=== PATIENT | female | born 1990 | race Caucasian/White ===

== ENCOUNTER 2021-08-16 20:08 | Emergency (ER) | payer OTHER, SELFPAY ==
[2021-08-16 20:36] VITALS: BP 120/79; PULSE 102; RESP 14; TEMP 36.8; O2SAT 100; BMI 33.1
--- NOTE | 2021-08-16 22:10 | ED_ITS ---
HPI - Skin/Abscess/Foreign Bdy General: Chief complaint: Skin/Abscess/Foreign Body Stated complaint: Bleeding L cheek Time Seen by Provider: 08/16/21 21:59 Source: patient Mode of arrival: ambulatory Limitations: no limitations History of Present Illness: 31-year-old female who states she has cirrhosis she states she had a small sore to her left cheek that bled off and on over the last week but states over the last days its bled for roughly 20 hours she has not been able to get to stop. It is active bleeding currently looks like a small pinpoint area that is bleeding no large open sore. Denies any pain denies any worsening improving factors Associated symptoms: Deny chills, fever(s), nausea or vomiting Review of Systems Const: Denies: fever(s), chills, body aches or change in appetite Eyes: Denies: blurry vision or eye discomfort ENMT: Denies: throat pain or dental pain Card: Denies: chest pain Resp: Denies: dyspnea GI: Denies: abdominal pain, nausea, vomiting or diarrhea : Denies: dysuria Musc: Denies: neck pain or back pain Skin/Breast: Denies: rash Neuro: Denies: headache(s) Psych: Denies: depression Shashank/Lymph: Denies: easy bruising All/Imm: Denies: urticaria PFSH ED PFSH: Medical History Cirrhosis Family History (Updated 08/16/21 @ 22:11 by Leidy Deleon MD) Other Bleeding disorder Physical Exam Const: COMMON NORMALS: no acute distress, patient oriented x3 and healthy appearing HENMT: COMMON NORMALS: normocephalic and atraumatic HEAD & SCALP: normocephalic and atraumatic OTHER: Small pinpoint area of hemorrhage to the left cheek that is actively bleeding Eye: COMMON NORMALS: Equal, round and reactive pupils present and EOMs intact bilaterally PUPIL: Yes Equal, round and reactive pupils present Neck/C-Spine: COMMON NORMALS: full ROM and supple Chest: COMMONS NORMALS: normal inspection of the chest and normal palpation of entire chest wall Resp: COMMON NORMALS: normal respiratory effort, No retractions, No use of accessory muscles and clear to auscultation bilaterally AUSCULTATION: clear to auscultation bilaterally Cardio: COMMON NORMALS: regular rate, regular rhythm and No murmurs present (Cardio) RATE: regular rate RHYTHM: regular rhythm GI: COMMON NORMALS: Normal to inspection, nondistended, normoactive bowel sounds present, Soft to palpation, non-tender and no masses PALPATION: Yes Soft to palpation Extremity: COMMON NORMALS: normal to inspection and full ROM Neuro: COMMON NORMALS: patient oriented x3, moves all extremities and no focal motor deficits Psych: COMMON NORMALS: mental status grossly normal, Normal thought process present and cooperative THOUGHT PROCESS: Normal thought process present Skin: COMMON NORMALS: no rashes or lesions noted and no wounds GENERAL SKIN EXAM: no rashes or lesions noted Procedures Laceration Laceration 1: Site: face Size (cm): 0.5 Local Anesthetic: lidocaine 1% and with epi Amount of anesthesia used (mL): 5 Skin layer closed with: vicryl Size (cm): 4-0 Number of sutures: 1 Course Vital Signs: Vital signs: Vital Signs Temperature 98.2 F 08/16/21 20:36 Pulse Rate 102 H 08/16/21 20:36 Respiratory Rate 14 08/16/21 20:36 Blood Pressure 120/79 08/16/21 20:36 Pulse Oximetry 100 08/16/21 20:36 MDM - Skin/Abscess/Foreign Bdy Medicial Decision Making Patient presents here with active bleeding from left cheek was able to get it stopped with a [id number] stitch she does have cirrhosis likely caused her bleeding Discharge Plan Discharge Patient Disposition: Home Clinical Impression: Bleeding Condition: Stable Discharge Orders: Discharge ED (Routine); Ordered 08/16/21 Ordered By: Leidy Deleon Discharge Diet: Advance as tolerated Discharge Activity: Resume usual activity Patient Instructions: Bleeding Disorders (ED) Coding Level of Care Code 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
--- NOTE | 2021-08-16 22:20 | PC.NURSE ---
wound was closed with 2 stitches. bleeding controlled. pressure dressing placed.
[2021-08-16 22:54] VITALS: BP 124/80; PULSE 97; RESP 16; O2SAT 99
== END 2021-08-16 22:55 | disposition home or self-care (01) ==
PROVIDERS: Emergency Provider Emergency Medicine
DX: S01.402A Unspecified open wound of left cheek and temporomandibular area, initial encounter (principal); X58.XXXA Exposure to other specified factors, initial encounter
CPT/HCPCS: 12011; 99282

== ENCOUNTER 2021-08-18 10:55 | Emergency (ER) | payer OTHER, SELFPAY ==
[2021-08-18 11:36] VITALS: BP 144/88; PULSE 101; RESP 18; O2SAT 100
--- NOTE | 2021-08-18 11:42 | CT_ITS ---
WS: [id number] CT HEAD NONCONTRAST HISTORY: DUONG, reports bleeding from L ear/nose TECHNIQUE: Contiguous axial imaging performed through the brain in 2.5 mm imaging. Bone and soft tiss ue windows. Sagittal and coronal reformats reviewed. All CT scans at [facility] use at least one of these dose optimization techniques: automated exposure control; mA and/or kV adjustment per pa tient size (includes targeted exams where dose is matched to clinical indication); or iterative recon struction. DLP: 866.8 mGy.cm COMPARISON: None available. No acute intracranial hemorrhage, midline shift or mass effect. No atrophy or prior infarcts or herniation. Ventricles: Normal size with no hydrocephalus. Paranasal sinuses: Mild diffuse mucoperiosteal thickening throughout the sinuses, most significantly involving the ethmoid air cells. Mastoid air cells: Well pneumatized. Calvarium and scalp: Skull is intact with no soft tissue edema or swelling. Soft tissue calcification or possibly a piercing over the central frontal bone. There is very mild thickening along the LEFT tympanic membrane which is asymmetric to the RIGHT. CT/CT head wo con* [id number] IMPRESSION: Negative head CT. Very minimal thickening involving the LEFT tympanic membrane which is asymmetri c to the RIGHT.
--- NOTE | 2021-08-18 12:00 | W.ED.GENADLT ---
Documented by User: JONATHAN Rosales 08/18/21 15:21 HPI - General Adult General: Chief complaint: Ear Stated complaint: Bleeding from the ear Time Seen by Provider: 08/18/21 11:18 Source: patient Mode of arrival: ambulatory Limitations: no limitations History of Present Illness: Patient is a 31-year-old female who presents to ED today with a complaint of a left earache and headache. She was seen here yesterday secondary to a lesion to her left cheek that was bleeding and she could not control the bleeding at home. Provider at the time placed a [id number] stitch which controlled the bleeding well. She states she has not had any further bleeding from the lesion. Patient states since then however she has developed a headache and left-sided ear pain and feels she does have some blood from her ear canal. She is also complaining of blood when she blows her nose. Patient is visibly very anxious and tearful. She does tell me she has a history of liver cirrhosis. She states she used to be a severe alcoholic but has not drank since May of this year. Patient states she did have labs performed approximately a month ago at [facility] for evaluation of this. She states she has an appointment with a liver specialist in approximately 2 weeks here in [facility]. Patient denies any bloody emesis. She is not having any black or tarry stools. She has not noticed any easy bruising or petechial/purpuric rashes. Onset (ago): hour(s) Location: head Relieving factors: none Exacerbating factors: none Associated symptoms: Reports headache(s); Deny chest pain, confusion, dyspnea, malaise, rash or vomiting Review of Systems Const: Denies: fever(s), chills, body aches, fatigue or malaise Eyes: Denies: change in vision or blurry vision ENMT: Reports: ear or mastoid pain, ear discharge and change in hearing; Denies: throat pain, odynophagia, bleeding gums, dental pain, tinnitus, disequilibrium, nasal discharge, nasal congestion, post nasal drip or sinus pain Card: Denies: chest pain Resp: Denies: dyspnea GI: Denies: abdominal pain, vomiting, diarrhea, hematochezia or melena : Denies: flank pain, dysuria or hematuria Musc: Denies: neck pain, back pain, extremity pain or joint pain Skin/Breast: Denies: rash Neuro: Reports: headache(s); Denies: numbness in extremities, weakness in extremities, sensory changes, lack of coordination, difficulty walking, frequent falls, dizziness or confusion Psych: Reports: anxiety PFSH ED PFSH: Medical History Cirrhosis Family History Other Bleeding disorder Social History (Updated 08/22/21 @ 08:41 by Joycelyn Walls) Smoking and tobacco status: current every day smoker Physical Exam Const: COMMON NORMALS: no acute distress, patient oriented x3, no limitations and alert GENERAL APPEARANCE: cooperative and anxious NUTRITIONAL APPEARANCE: overweight HENMT: COMMON NORMALS: normocephalic, atraumatic and external ears normal (lobes are deformed from previous gages) HEAD & SCALP: normal to inspection, normocephalic and atraumatic FACE & SINUS: other (lesion to L cheek not undressed; original dressing in place/no blood) EXTERNAL EAR: Yes external ears normal (lobes are deformed from previous gages) EXTERNAL AUDITORY CANAL: Abnormal EAC present EAC laterality: left (abraded canal vs otitis externa; small amount of blood present) TYMPANIC MEMBRANE: TM normal on the right and TM abnormal TM laterality: left Details: bulging, erythematous and loss of landmarks MOUTH: Normal oral and palatal mucosa present, lip normal and tongue normal THROAT: posterior oropharynx normal, tonsils normal and uvula midline Eye: COMMON NORMALS: Equal, round and reactive pupils present and EOMs intact bilaterally GENERAL EYE: appearance normal, both eyes and all related structures PUPIL: Yes Equal, round and reactive pupils present Neck/C-Spine: COMMON NORMALS: full ROM, no lymphadenopathy and no meningeal signs Resp: COMMON NORMALS: normal respiratory effort and clear to auscultation bilaterally AUSCULTATION: clear to auscultation bilaterally Cardio: COMMON NORMALS: regular rate and regular rhythm RATE: regular rate RHYTHM: regular rhythm GI: COMMON NORMALS: Normal to inspection, nondistended, normoactive bowel sounds present, Soft to palpation and non-tender PALPATION: Yes Soft to palpation : COMMON NORMALS: Yes no CVA tenderness BLADDER/KIDNEY EXAM: Yes no CVA tenderness Back/Pelvis: COMMON NORMALS: no CVA tenderness Extremity: COMMON NORMALS: normal to inspection GENERAL: Yes normal exam except as noted Neuro: ESTEFANY COMA SCALE: document GCS findings Estefany coma scale eye opening: Spontaneous Estefany coma scale verbal response: Orientated Shock coma scale motor response: Obey commands Estefany coma scale total score: 15 COMMON NORMALS: patient oriented x3, moves all extremities, no focal motor deficits, no sensory deficits noted and gait normal SENSORIUM/ORIENTATION: Yes alert MENINGEAL SIGNS: Yes no meningeal signs Skin: RASHES: no rashes Course Vital Signs: Vital signs: Vital Signs Pulse Rate 89 08/18/21 15:16 Respiratory Rate 15 08/18/21 15:16 Blood Pressure 149/81 08/18/21 15:16 Pulse Oximetry 100 08/18/21 15:16 [facility] - General Adult Medical Decision Making Patient clinically has a right otitis media with questionable otitis externa versus canal abrasion as patient states she has been trying to clean it with toilet paper/Q-tips. Imaging/labs obtained due to patient's non-specific symptoms and her concern for her headache, bleeding from her ear, and bleeding from her nose. Head CT negative apart from some mild thickening of the left TM which matches what I see clinically. Blood work showing anemia with a hemoglobin of 7.1. She has thrombocytopenia with a platelet count of 97. Chemistry showing elevated LFTs and a bilirubin of 3.7. Her INR is 2.14. She tells me she does have a known history of cirrhosis and no she has abnormal labs but does not know baseline values. I was able to get records from [facility] and blood work was obtained on 07/24. On that visit she had a hemoglobin of 8.7. Her platelet count was 83. He had an INR of 2.2 and her bilirubin was 3.6. Looking at patient's records it looks like she has been set up with an appointment with Dr. Dash scheduled for 09/01 for evaluation of these labs. 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 I did offer her a rectal exam today to evaluate for GI bleeding even though she does not have any complaints of dark or tarry stools however she declines. I spoke to Dr. Holbrook in regards to labs. He recommended placing patient on Protonix and continuing her current follow-up with Dr. Dash. Patient was given strict return to ED precautions which she verbalized understanding of. Lab Data : 08/18/21 12:35 08/18/21 12:[address] 08/18/21 11:42 IMPRESSION: Negative head CT. Very minimal thickening involving the LEFT tympanic membrane which is asymmetric to the RIGHT. Laboratory Results WBC 6.2 10^3/uL (4.0-10.0) 08/18/21 12:35 RBC 2.13 10^6/uL (4.1-5.3) L 08/18/21 12:35 Hgb 7.1 g/dL (11.5-15.3) L 08/18/21 12:35 Hct 22.0 % (37.0-47.0) L 08/18/21 12:35 MCV 103.3 fl (81-99) H 08/18/21 12:35 MCH 33.3 pg (28.0-34.0) 08/18/21 12:35 MCHC 32.3 g/dL (30.0-36.0) 08/18/21 12:35 RDW 14.6 % (12.1-15.1) 08/18/21 12:35 Plt Count 97 10^3/cmm (130-400) L 08/18/21 12:35 MPV 9.7 fL (7.4-10.4) 08/18/21 12:35 Neut % (Auto) 67.5 % 08/18/21 12:35 Lymph % (Auto) 18.8 % 08/18/21 12:35 [place] % (Auto) 11.2 % 08/18/21 12:35 Eos % (Auto) 1.9 % 08/18/21 12:35 Baso % (Auto) 0.3 % 08/18/21 12:35 Neut # (Auto) 4.17 10^3/uL (1.8-7.7) 08/18/21 12:35 Lymph # (Auto) 1.2 10^3/uL (0.8-4.8) 08/18/21 12:35 [place] # (Auto) 0.7 10^3/uL (0.2-0.9) 08/18/21 12:35 Eos # (Auto) 0.1 10^3/uL (0.0-0.8) 08/18/21 12:35 Baso # (Auto) 0.0 10^3/uL (0.0-0.1) 08/18/21 12:35 Nucleated RBC % (auto) 0 % 08/18/21 12:35 Nucleated RBCs # 0.0 /100WBC 08/18/21 12:35 PT 24.20 SECONDS (12.1-14.9) H 08/18/21 12:35 INR 2.14 (0.8-1.2) H 08/18/21 12:35 APTT 44.8 SECONDS (23.9-36.7) H 08/18/21 12:35 Sodium 134 mmol/L (136-145) L 08/18/21 12:35 Potassium 3.5 mmol/L (3.5-5.1) 08/18/21 12:35 Chloride 103 mmol/L (98-107) 08/18/21 12:35 Carbon Dioxide 19 mmol/L (22-29) L 08/18/21 12:35 Anion Gap 15.5 (5-19) 08/18/21 12:35 BUN 6 mg/dL (6-20) 08/18/21 12:35 Creatinine 0.4 mg/dL (0.5-0.9) L 08/18/21 12:35 GFR Calculation 188.7 mL/min (90-130) H 08/18/21 12:35 Glucose 114 mg/dL (65-115) 08/18/21 12:35 Calculated Osmolality 276 mOsm/kg (285-295) L 08/18/21 12:35 Calcium 8.1 mg/dL (8.5-10.5) L 08/18/21 12:35 Total Bilirubin 3.7 mg/dL (0.15-1.2) H 08/18/21 12:35 AST 48 U/L (0-32) H 08/18/21 12:35 ALT 23 U/L (0-33) 08/18/21 12:35 Alkaline Phosphatase 168 IU/L (35-105) H 08/18/21 12:35 Total Protein 6.1 g/dL (6.6-8.7) L 08/18/21 12:35 Albumin 2.9 g/dL (3.5-5.2) L 08/18/21 12:35 Globulin 3.2 g/dL (1.3-4.6) 08/18/21 12:35 Discharge Plan Discharge Patient Disposition: Home Clinical Impression: Anemia, Elevated INR, Thrombocytopenia, History of cirrhosis of liver Otitis media Qualifiers: Otitis media type: suppurative Chronicity: acute Laterality: left Recurrence: non-recurrent Spontaneous tympanic membrane rupture: without spontaneous rupture Qualified Code(s): H66.002 - Acute suppurative otitis media without spontaneous rupture of ear drum, left ear Condition: Stable Prescriptions: New cefdinir 300 mg capsule 300 mg PO BID 10 Days Qty: 20 0RF Protonix 40 mg tablet,delayed release (DR/EC) 40 mg PO DAILY 28 Days Qty: 28 0RF Ciprodex 0.3-0.1 % drops,suspension 4 drp otic (ear) BID 7 Days Qty: 7.5 0RF No Action lactulose 10 gram/15 mL (15 mL) solution 20 g PO BID 0RF potassium chloride [Klor-Con M20] 20 mEq tablet,ER particles/crystals 20 meq PO BID 0RF Discharge Orders: Discharge ED (Routine); Ordered 08/18/21 Ordered By: Nicolle Daley Activity Restrictions/Additional Instructions: As we discussed your appointment with Dr. Dash is scheduled for 09/01 at 9:30. He could discuss with you the possible need for a channel business manager in [place] if he felt like this was indicated. You need to return to the emergency department immediately for bloody vomit, black/tarry stools, any prolonged periods of bleeding, easy bruising, passing out episodes, or any other concerns you may have. Coding Level of Care Code ED Primary Mill Roller for Chg 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 Documented by User: Juan M Holbrook MD 08/23/21 07:21 HPI - General Adult General: Chief complaint: Ear Stated complaint: Bleeding from the ear Time Seen by Provider: 08/18/21 11:18 PFSH ED PFSH: Medical History Cirrhosis Family History Other Bleeding disorder Social History (Updated 08/22/21 @ 08:41 by Joycelyn Walls) Smoking and tobacco status: current every day smoker Physical Exam Neuro: ESTEFANY COMA SCALE: document GCS findings Shock coma scale total score: 15 Course Vital Signs: Vital signs: Vital Signs Pulse Rate 89 08/18/21 15:16 Respiratory Rate 15 08/18/21 15:16 Blood Pressure 149/81 08/18/21 15:16 Pulse Oximetry 100 08/18/21 15:16 MDM - General Adult Medical Decision Making Patient clinically has a right otitis media with questionable otitis externa versus canal abrasion as patient states she has been trying to clean it with toilet paper/Q-tips. Imaging/labs obtained due to patient's non-specific symptoms and her concern for her headache, bleeding from her ear, and bleeding from her nose. Head CT negative apart from some mild thickening of the left TM which matches what I see clinically. Blood work showing anemia with a hemoglobin of 7.1. She has thrombocytopenia with a platelet count of 97. Chemistry showing elevated LFTs and a bilirubin of 3.7. Her INR is 2.14. She tells me she does have a known history of cirrhosis and no she has abnormal labs but does not know baseline values. I was able to get records from [facility] and blood work was obtained on 07/24. On that visit she had a hemoglobin of 8.7. Her platelet count was 83. He had an INR of 2.2 and her bilirubin was 3.6. Looking at patient's records it looks like she has been set up with an appointment with Dr. Dash scheduled for 09/01 for evaluation of these labs. 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 I did offer her a rectal exam today to evaluate for GI bleeding even though she does not have any complaints of dark or tarry stools however she declines. I spoke to Dr. Holbrook in regards to labs. He recommended placing patient on Protonix and continuing her current follow-up with Dr. Dash. Patient was given strict return to ED precautions which she verbalized understanding of. I discussed this case with JONATHAN Rosales. I have reviewed documentation. I discussed management. Juan M Holbrook MD Emergency Medicine Lab Data : 08/18/21 12:35 08/18/21 12:[address] 08/18/21 11:42 IMPRESSION: Negative head CT. Very minimal thickening involving the LEFT tympanic membrane which is asymmetric to the RIGHT. Laboratory Results WBC 6.2 10^3/uL (4.0-10.0) 08/18/21 12:35 RBC 2.13 10^6/uL (4.1-5.3) L 08/18/21 12:35 Hgb 7.1 g/dL (11.5-15.3) L 08/18/21 12:35 Hct 22.0 % (37.0-47.0) L 08/18/21 12:35 MCV 103.3 fl (81-99) H 08/18/21 12:35 MCH 33.3 pg (28.0-34.0) 08/18/21 12:35 MCHC 32.3 g/dL (30.0-36.0) 08/18/21 12:35 RDW 14.6 % (12.1-15.1) 08/18/21 12:35 Plt Count 97 10^3/cmm (130-400) L 08/18/21 12:35 MPV 9.7 fL (7.4-10.4) 08/18/21 12:35 Neut % (Auto) 67.5 % 08/18/21 12:35 Lymph % (Auto) 18.8 % 08/18/21 12:35 [place] % (Auto) 11.2 % 08/18/21 12:35 Eos % (Auto) 1.9 % 08/18/21 12:35 Baso % (Auto) 0.3 % 08/18/21 12:35 Neut # (Auto) 4.17 10^3/uL (1.8-7.7) 08/18/21 12: Lymph # (Auto) 1.2 10^3/uL (0.8-4.8) 08/18/21 12:35 [place] # (Auto) 0.7 10^3/uL (0.2-0.9) 08/18/21 12:35 Eos # (Auto) 0.1 10^3/uL (0.0-0.8) 08/18/21 12:35 Baso # (Auto) 0.0 10^3/uL (0.0-0.1) 08/18/21 12:35 Nucleated RBC % (auto) 0 % 08/18/21 12:35 Nucleated RBCs # 0.0 /100WBC 08/18/21 12:35 PT 24.20 SECONDS (12.1-14.9) H 08/18/21 12:35 INR 2.14 (0.8-1.2) H 08/18/21 12:35 APTT 44.8 SECONDS (23.9-36.7) H 08/18/21 12:35 Sodium 134 mmol/L (136-145) L 08/18/21 12:35 Potassium 3.5 mmol/L (3.5-5.1) 08/18/21 12:35 Chloride 103 mmol/L (98-107) 08/18/21 12:35 Carbon Dioxide 19 mmol/L (22-29) L 08/18/21 12:35 Anion Gap 15.5 (5-19) 08/18/21 12:35 BUN 6 mg/dL (6-20) 08/18/21 12:35 Creatinine 0.4 mg/dL (0.5-0.9) L 08/18/21 12:35 GFR Calculation 188.7 mL/min (90-130) H 08/18/21 12:35 Glucose 114 mg/dL (65-115) 08/18/21 12:35 Calculated Osmolality 276 mOsm/kg (285-295) L 08/18/21 12:35 Calcium 8.1 mg/dL (8.5-10.5) L 08/18/21 12:35 Total Bilirubin 3.7 mg/dL (0.15-1.2) H 08/18/21 12:35 AST 48 U/L (0-32) H 08/18/21 12:35 ALT 23 U/L (0-33) 08/18/21 12:35 Alkaline Phosphatase 168 IU/L (35-105) H 08/18/21 12:35 Total Protein 6.1 g/dL (6.6-8.7) L 08/18/21 12:35 Albumin 2.9 g/dL (3.5-5.2) L 08/18/21 12:35 Globulin 3.2 g/dL (1.3-4.6) 08/18/21 12:35 Discharge Plan Discharge Patient Disposition: Home Clinical Impression: Anemia, Elevated INR, Thrombocytopenia, History of cirrhosis of liver Otitis media Qualifiers: Otitis media type: suppurative Chronicity: acute Laterality: left Recurrence: non-recurrent Spontaneous tympanic membrane rupture: without spontaneous rupture Qualified Code(s): H66.002 - Acute suppurative otitis media without spontaneous rupture of ear drum, left ear Condition: Stable Prescriptions: New cefdinir 300 mg capsule 300 mg PO BID 10 Days Qty: 20 0RF Protonix 40 mg tablet,delayed release (DR/EC) 40 mg PO DAILY 28 Days Qty: 28 0RF Ciprodex 0.3-0.1 % drops,suspension 4 drp otic (ear) BID 7 Days Qty: 7.5 0RF No Action lactulose 10 gram/15 mL (15 mL) solution 20 g PO BID 0RF potassium chloride [Klor-Con M20] 20 mEq tablet,ER particles/crystals 20 meq PO BID 0RF Discharge Orders: Discharge ED (Routine); Ordered 08/18/21 Ordered By: Nicolle Daley Activity Restrictions/Additional Instructions: As we discussed your appointment with Dr. Dash is scheduled for 09/01 at 9:30. He could discuss with you the possible need for a channel business manager in [place] if he felt like this was indicated. You need to return to the emergency department immediately for bloody vomit, black/tarry stools, any prolonged periods of bleeding, easy bruising, passing out episodes, or any other concerns you may have. Coding Level of Care Code ED Primary Mill Roller for Chg 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
[2021-08-18 12:51] LABS: White Blood Count 6.2 10^3/uL (4.0-10.0)
[2021-08-18 12:52] LABS: Basophils % 0.3 %; Eosinophils # 0.1 10^3/uL (0.0-0.8); Eosinophils % 1.9 %; Hemoglobin 7.1 g/dL (11.5-15.3); Lymphocytes # 1.2 10^3/uL (0.8-4.8); Lymphocytes % 18.8 %; Mean Corpuscular HGB Conc 32.3 g/dL (30.0-36.0); Mean Corpuscular Hemoglobin 33.3 pg (28.0-34.0); Mean Corpuscular Volume 103.3 fl (81-99); Mean Platelet Volume 9.7 fL (7.4-10.4); Monocytes # 0.7 10^3/uL (0.2-0.9); Monocytes % 11.2 %; Neutrophils # 4.17 10^3/uL (1.8-7.7); Neutrophils % 67.5 %; Nucleated Red Blood Cells % 0 %; Platelet Count 97 10^3/cmm (130-400); Red Blood Count 2.13 10^6/uL (4.1-5.3); Red Cell Distribution Width 14.6 % (12.1-15.1)
[2021-08-18 13:20] LABS: Alanine Aminotransferase 23 U/L (0-33); Albumin Level 2.9 g/dL (3.5-5.2); Alkaline Phosphatase 168 IU/L (35-105); Anion Gap 15.5 (5-19); Aspartate Amino Transferase 48 U/L (0-32); Blood Urea Nitrogen 6 mg/dL (6-20); Calcium 8.1 mg/dL (8.5-10.5); Carbon Dioxide 19 mmol/L (22-29); Chloride 103 mmol/L (98-107); Globulin 3.2 g/dL (1.3-4.6); Glomerular Filtration Rate 188.7 mL/min (90-130); Glucose 114 mg/dL (65-115); Osmolality Calculated 276 mOsm/kg (285-295); Potassium 3.5 mmol/L (3.5-5.1); Sodium 134 mmol/L (136-145); Total Bilirubin 3.7 mg/dL (0.15-1.2); Total Protein 6.1 g/dL (6.6-8.7)
[2021-08-18 13:22] LABS: INR 2.14 (0.8-1.2)
[2021-08-18 13:24] LABS: Partial Thromboplastin Time 44.8 SECONDS (23.9-36.7)
[2021-08-18 15:16] VITALS: BP 149/81; PULSE 89; RESP 15; O2SAT 100
== END 2021-08-18 15:15 | disposition home or self-care (01) ==
PROVIDERS: Emergency Provider Physician Assistant
DX: H66.002 Acute suppurative otitis media without spontaneous rupture of ear drum, left ear (principal); D64.9 Anemia, unspecified; R79.1 Abnormal coagulation profile; D69.6 Thrombocytopenia, unspecified; K74.60 Unspecified cirrhosis of liver; F17.200 Nicotine dependence, unspecified, uncomplicated; F10.21 Alcohol dependence, in remission
CPT/HCPCS: 70450; 80053; 85025; 85610; 85730; 99283